=== PATIENT | male | born 1955 | race Caucasian/White ===

== ENCOUNTER → 2016-10-12 | Outpatient (CLI) | payer BC ==
[~2016-10-12] MED LIST: ASA325 MG PO; CELEBREX200 MG PO; MEN 50 PLUS MU1 EACH PO; OXY IR DPS5 MG PO; PROTONIX40 MG PO; SIMBRINZA 1%-0.28 ML OU; TIMOPTIC 0.5% DP5 ML OU; ULTRAM DPS50 MG PO; VITAMIN D-32000 UNI1 PO; XALATAN2.5 ML OU
== END | disposition home or self-care (01) ==
DX: Z01.812 Encounter for preprocedural laboratory examination (principal)

== ENCOUNTER 2016-10-20 08:10 | Inpatient (IN) | payer BC ==
[~2016-10-20] VITALS: Ht 188 cm; Wt 114.0 kg
--- NOTE | 2016-10-20 14:09 | HP ---
ADMIT: 10/20/2016 RM/LOC: W.06 [facility] MR#: [id number] [address] [place], [place] [address] REBECA CASTELLANOS [address] [place], [place] [address] Pre-OP History and Physical SEX: M AGE: 61 : 1955 DATE OF SERVICE: CHIEF COMPLAINT: Left knee pain. HISTORY PRESENT ILLNESS: Patient is a 61-year-old, white male with left knee DJD. He has had right total knee arthroplasty done well from this. His left knee has failed non-op treatment. PAST MEDICAL HISTORY: Significant for kidney stones, bladder cancer, knee replacement. MEDICATIONS: 1. Multivitamin. 2. Vitamin C. 3. Aspirin. ALLERGIES: TO MORPHINE AND PENICILLIN. SOCIAL HISTORY: The patient is a former smoker, occasionally uses alcohol. PHYSICAL EXAMINATION: HEENT: Normocephalic and atraumatic. CV: Regular rate and rhythm. LUNGS: Benign. ABDOMEN: Benign. NEUROLOGIC: Awake and oriented x3. MUSCULOSKELETAL: Shows no erythema, redness, or swelling. No signs of infection. Full extension, 125-130 degrees of flexion. Good ligamentous stability. He has some pseudomedial collateral ligament laxity on the left knee, tender over the medial joint line and the patellofemoral joint. IMAGING DATA: X-rays show left knee DJD, bone on bone medially, and patellofemoral arthrosis. ASSESSMENT AND PLAN: Left knee degenerative joint disease. At this point in time, we will plan left total knee arthroplasty. The patient understands the risks and benefits of the surgical intervention, which included but not limited to infection, DVT, arthrofibrosis, neurovascular injury, loosening, depth, etc and desires to proceed. He will see his medical doctor for preoperative medical clearance and follow postoperatively in the hospital for anticoagulation and any medical issues that may arise. Please refer to that H and P for any in-depth medical issues. Jose Luis Alva MD/ lj JOB #: [id number] CC: Jose Luis Alva, Attending Physician ADMIT: 10/20/2016 RM/LOC: W.06 [facility] MR#: [id number] [address] [address] REBECA CASTELLANOS [address] [place] [address] Pre-OP History and Physical SEX: M AGE: 61 : 1955 Sekou Nogueira, Family Physician
[2016-10-23] MEDS ORDERED: TIMOPTIC 0.5% DP5 ML OU (19:37)
[2016-10-23] MEDS ORDERED: XALATAN2.5 ML OU (19:37)
[2016-10-23] MEDS ORDERED: SIMBRINZA 1%-0.28 ML OU (19:37)
[2016-10-23] MEDS ORDERED: MEN 50 PLUS MU1 EACH PO (19:38)
[2016-10-23] MEDS ORDERED: ASA325 MG PO (19:38)
[2016-10-23] MEDS ORDERED: PROTONIX40 MG PO (19:38)
[2016-10-23] MEDS ORDERED: VITAMIN D-32000 UNI1 PO (19:38)
[2016-10-23] MEDS ORDERED: ULTRAM DPS50 MG PO (19:39)
[2016-10-23] MEDS ORDERED: CELEBREX200 MG PO (19:39)
[2016-10-23] MEDS ORDERED: OXY IR DPS5 MG PO (19:39)
--- NOTE | 2016-10-27 14:12 | OR ---
ADMIT: 10/20/2016 RM/LOC: 510 [facility] MR#: [id number] [address] [address] AYALAZAHIRAREBECA FUNES [address] [place] [address] Operative/Delivery Room Report SEX: M AGE: 61 : 1955 SURGERY DATE: 10/20/2016 SURGEON: Jose Luis Alva MD CHIEF COMPLAINT: Left knee pain. HISTORY OF PRESENT ILLNESS: The patient is a 61-year-old white male with left knee DJD. He has had a right total knee arthroplasty, done very well from this. He has failed nonoperative treatment, cortisone injections, medications etc., he desires total knee arthroplasty. He understands the risks and benefits of the procedure and desires to proceed with operation. DESCRIPTION OF THE PROCEDURE: The patient was taken to the OR, spinal placed, he was laid in supine position. All bony prominences were well padded. A well- padded tourniquet applied to left lower extremity. The left lower extremity was prepped and draped in the usual sterile fashion and exsanguinated and tourniquet inflated to 350 mmHg. An anterior incision was made starting over the medial aspect of the tibial tubercle, carried proximal to the patella through the skin and subcutaneous tissue with a skin knife. Medial arthrotomy then performed with #10 blade. The patella everted, knee flexed. ACL, PCL, medial, and lateral menisci excised. Step drill was then used to open the intramedullary canal of femur. I placed the IM alignment guide with the distal femoral cutting block down the intramedullary canal of the femur, set at 13 mm of resection and 5 degrees of valgus cut and pinned it to the anterior aspect of the distal femur. I removed the IM alignment guide. I then cut the distal femur using an oscillating saw and the distal femoral cutting block. I removed the cutting block and sized the femur to 4. I placed a size four 4-in-1 cutting block on the distal aspect of the femur in 3 degrees of external rotation, made the 4 appropriate cuts using an oscillating saw. I removed this cutting block and cut the box out of distal femur using the reciprocating saw and the box cutting jig. I then cut the proximal tibia perpendicular to the long axis of the tibial shaft using a proximal tibial cutting guide and oscillating saw. Posterior aspect of the patella was cut flush with the posterior aspects of the quadriceps and patella tendons using the patella cutting saw. This was sized to 41, step drilled with the guide. Trial components were then placed. A size 4 tibial tray with a 10-mm insert gave full extension, full flexion, excellent stability, and excellent patellar tracking. Thus, the femoral component was step drilled, tibial component step ADMIT: 10/20/2016 RM/LOC: 510 [facility] MR#: [id number] [address] [place] [address] [place] [address] Operative/Delivery Room Report SEX: M AGE: 61 : 1955 drilled, and cruciate punched. Trial components were then removed. The knee was thoroughly irrigated with bacitracin solution and dried. Knee thoroughly injected with Exparel. I then cemented the tibia, patella, and femoral components into place removing all extraneous cement as it dried. I impacted a 10-mm insert in the tibial tray and ran the knee through a range of motion. Again it had full range of motion, excellent stability, and patellar tracking. Thus, one deep drain was then placed. Medial arthrotomy closed using #1 Vicryl, subcutaneous tissue closed using 2-0 Vicryl, skin closed using chase. Wounds were washed, dried, dressed with sterile Adaptic, 4x4s, ABD, Webril, and Chris wrap. Drapes removed and tourniquet let down. An ice pad was placed on top of the Chris wrap. The patient transferred back to recovery room in fair condition. Jose Luis Alva MD/ lj JOB #: [id number] CC: Jose Luis Alva, Attending Physician Sekou Nogueira, Family Physician
--- NOTE | 2016-10-28 11:36 | CO ---
ADMIT: 10/20/2016 RM/LOC: [facility] MR#: [id number] [address] [place], [place] [address] REBECA CASTELLANOS [address] [place] [address] Consultation Report SEX: M AGE: 61 : 1955 DATE OF CONSULTATION: 10/12/2016 ATTENDING PHYSICIAN: Jose Luis Alva CONSULTING PHYSICIAN: Sekou Nogueira MD CHIEF COMPLAINT/HISTORY OF PRESENT ILLNESS: This 61-year-old male is seen for a preoperative visit for a left total knee to be done by Dr. Alva. The patient has had increasing pain in his left knee over the last year. He has had previous right knee surgery done by Dr. Alva. PAST MEDICAL HISTORY: Generally, his health has been good. PAST SURGICAL HISTORY: Include an appendectomy, herniorrhaphy, and right total knee. ALLERGIES: PENICILLIN, AND HE STATES HIS MOTHER TOLD HIM HE ALMOST . HE ALSO HAS HAD ALLERGIES TO MORPHINE, WHICH CAUSED HIVES. FAMILY HISTORY: The mother is living and well in her 90s. The father of cancer. There are no familial diseases. SOCIAL HISTORY: The patient quit smoking approximately 2 years ago. He drinks beer approximately a 6 pack a day. MEDICATIONS: Include: 1. Eyedrops for glaucoma. 2. Aspirin. 3. Vitamin C. 4. Multivitamin. REVIEW OF SYSTEMS: HEENT: The patient has had no chronic headaches or sinus problems. CARDIORESPIRATORY: The patient has no history of hypertension, high cholesterol. He has had no history of pneumonia. GASTROINTESTINAL: There has been no nausea, vomiting, constipation, bloody stools, or diarrhea. GENITOURINARY: The patient has had renal calculi, but no urinary tract infections. MUSCULOSKELETAL: The patient has osteoarthritis. PHYSICAL EXAMINATION: VITAL SIGNS: Blood pressure is 118/70, temperature 97.9, weight 246 pounds, BMI is 31.58, pulse 68 and regular, and respirations 16. GENERAL: The patient is an obese male, who is alert, cooperative, oriented x3. HEENT: Head - normocephalic without exostoses. PARISH. Throat within normal limits. Glaucoma. CHEST: Clear to percussion and auscultation. HEART: Regular rhythm with no murmur heard. No clinical evidence of ADMIT: 10/20/2016 RM/LOC: [facility] MR#: [id number] [address] [address] [facility] [place] [address] Consultation Report SEX: M AGE: 61 : 1955 cardiomegaly. ABDOMEN: Soft, nontender. Liver is not enlarged. Spleen is not palpable. No abnormal masses are palpated. Femoral pulses are strong and equal bilaterally. GENITALIA: Normal. EXTREMITIES: The patient does have a left knee effusion. He also has 1+ ankle edema bilaterally. ASSESSMENT: 1. Osteoarthritis. 2. Penicillin allergy. 3. Glaucoma. 4. History of tobacco use. Sekou Nogueira MD/ lj JOB #: [id number] CC: Jose Luis Alva, Attending Physician UNKNOWN, Family Physician
--- NOTE | 2016-11-10 15:15 | DS ---
ADMIT: 10/20/2016 RM/LOC: 510 [facility] MR#: [id number] [address] [address] DOMINGUEZ CASTELLANOS [address] [place] [address] General Discharge Summary SEX: M AGE: 61 : 1955 ADMISSION DATE: 10/20/2016 DISCHARGE DATE: 10/22/2016 REASON FOR ADMISSION: Elective left total knee arthroplasty after failing conservative management for osteoarthritis. PREOPERATIVE DIAGNOSIS: Left knee degenerative joint disease. POSTOPERATIVE DIAGNOSIS: Left knee degenerative joint disease. PROCEDURE PERFORMED: Left total knee arthroplasty with Exparel block. ANESTHETIC: Spinal. COMPLICATIONS: None. ESTIMATED BLOOD LOSS: Minimal. SURGEON: Jose Luis Alva MD ACTIVE MEDICAL PROBLEMS: Osteoarthritis, glaucoma, history of tobacco use. HOSPITAL COURSE: Dominguez was admitted on 10/20/2016, for elective left total knee arthroplasty, was completed successfully by Dr. Alva with no complications. Postoperatively, he did well with pain control with use of intraoperative Exparel as well as oral analgesics, participated well with physical therapy. Postoperatively on day of surgery, he did have some lower heart rates in the 50s and down into the 40s, we put on telemetry and monitored, otherwise did very well and was asymptomatic. On postoperative day #1, I did pull out Hemovac drain, he was doing well, but ambulating with physical therapy without difficulties. By postoperative day #2, his pain was continuing to be well controlled, he was progressing nicely with his physical therapy. He had a single temperature elevation of 99.7, but was afebrile and asymptomatic. He did experience mild acute surgical blood-loss anemia, hemoglobin dropped to 10.3 on postoperative day #1, but trending upward to 10.6 by postoperative day #2. On day #3, he was stable, safe, and ready for discharge with plans for outpatient therapy. DISCHARGE MEDICATIONS: 1. Simbrinza drops b.i.d. 2. Timolol drops 0.5% daily. ADMIT: 10/20/2016 RM/LOC: 510 [facility] MR#: [id number] [address] [address] DOMINGUEZ CASTELLANOS [address] [place] [address] General Discharge Summary SEX: M AGE: 61 : 1955 3. Latanoprost drop 0.005% daily. 4. Men's multivitamin daily. 5. Aspirin 325 mg daily. 6. Vitamin C 2000 mg daily. 7. Protonix 40 mg daily. 8. Tramadol 50 mg one to two q.6 p.r.n. 9. OxyIR 5 mg one to two q.4 p.r.n. 10.Celebrex 200 mg b.i.d. p.r.n. DISCHARGE INSTRUCTIONS: Dominguez will undergo outpatient therapy per total knee arthroplasty protocol. Follow up in the Orthopedic office in 2 weeks for wound check, 6 weeks with x-rays. Follow up with primary care as directed. Jose Antonio Newman PA-C / Jose Luis Alva MD / lj JOB #: [id number] CC: Jose Luis Alva MD, Attending Physician Sekou Nogueira MD, Family Physician
== END 2016-10-22 15:45 | disposition home or self-care (01) | DRG 470 ==
LOC: WOR 11:34 → 5MS 11:34
PROVIDERS: ADMIT Orthopaedic Surgery
PROC: 0SRD0J9 Replacement of Left Knee Joint with Synthetic Substitute, Cemented, Open Approach (ICD-10-PCS; principal; 2016-10-20)
DX: M17.12 Unilateral primary osteoarthritis, left knee (principal); D62 Acute posthemorrhagic anemia; E66.9 Obesity, unspecified; H40.9 Unspecified glaucoma; Z96.651 Presence of right artificial knee joint; Z85.51 Personal history of malignant neoplasm of bladder; Z87.442 Personal history of urinary calculi; Z79.82 Long term (current) use of aspirin; Z87.891 Personal history of nicotine dependence; Z68.31 Body mass index [BMI] 31.0-31.9, adult